=== PATIENT | male | born 1975 | race African-American/Black ===

== ENCOUNTER 2019-01-12 17:17 | Emergency (ER) | payer BC ==
[2019-01-12 17:22] VITALS: BP 132/80; PULSE 73; TEMP 98.1; BMI 30.4
--- NOTE | 2019-01-12 17:24 | PDOC ---
History of Present Illness - General Chief Complaint: Chest Pain Stated Complaint: CHEST PAIN Time Seen by Provider: 01/12/19 17:23 - History of Present Illness Initial Comments: 01/12/19 17:43 The patient is a 43 year old male with a history of pre-diabetes who presents for evaluation of chest pain. 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 He notes that palpation of a specific location helped relieve his pain and states that his pain has completely resolved on presentation to the ED. He otherwise denies fevers, chills, SOB, cough, nausea, vomiting, abdominal pain, or changes with urination or bowel movements. Past History - Past Medical History Allergies/Adverse Reactions: Allergies Allergy/AdvReac Type Severity Reaction Status Date / Time No Known Allergies Allergy Verified 01/12/19 17:23 Home Medications: Ambulatory Orders NK [No Known Home Medication] 01/12/19 COPD: No Diabetes: Yes (pre no meds) - Suicide/Smoking/Psychosocial Hx Smoking History: Never smoked Have you smoked in the past 12 months: No Information on smoking cessation initiated: No Hx Alcohol Use: No Drug/Substance Use Hx: No Review of Systems - Review of Systems Comments:: 01/12/19 17:48 Constitutional: No fevers, chills, fatigue, malaise HEENT: No Rhinorrhea, nasal congestion, visual changes Cardiovascular: Chest pain. No syncope, palpitations, lightheadedness Respiratory: No Cough, SOB, Hemoptysis, Gastrointestinal: No Abdominal pain, Nausea, Vomiting, Constipation, Diarrhea, Melena Genitourinary: No Dysuria, Frequency, Urgency, Hesitancy, Hematuria, Flank pain Musculoskeletal: No Myalgia, arthralgia Skin: No rashes, itching, bruising, pallor Neurologic: No Headache, Dizziness, Numbness, Weakness, or Tingling Psychiatric: No Hallucinations. No SI or HI *Physical Exam - Vital Signs Last Vital Signs Temp Pulse Resp BP Pulse Ox 98.1 F 73 18 132/80 100 01/12/19 17:20 01/12/19 17:20 01/12/19 17:20 01/12/19 17:20 01/12/19 17:20 - Physical Exam Comments: 01/12/19 17:48 General Appearance: Nourished. No Apparent Distress HEENT: No Pharyngeal Erythema, Tonsillar Exudate, Tonsillar Erythema Neck: No Cervical Lymphadenopathy Respiratory/Chest: Lungs Clear, Normal Breath Sounds. No Crackles, Rales, Rhonchi, Wheezing Cardiovascular: Regular Rhythm, Regular Rate. No Murmur, Gallops, Rubs Gastrointestinal/Abdominal: Normal Bowel Sounds, Soft. No Guarding, Rebound, Tenderness Musculoskeletal: No CVA Tenderness Extremity: Normal Capillary Refill Integumentary: Normal Color, Dry, Warm Neurologic: Fully Oriented, Alert, Normal Mood/Affect, Normal Response, Heart Score/ECG Review - History History: Slightly suspicious - Electrocardiogram EKG: Normal - Age Age: </= 45 - Risk Factors Risk Factors Heart Score: Yes Hx Diabetes Based on the list above the patient has:: 1-2 risk factors - Troponin Troponin: </= normal limit - Score Heart Score - Total: 1 #1 ECG reviewed & interpreted by me at: 17:49 General ECG Interpretation: Sinus Rhythm, Normal Rate, Normal Intervals, No acute ischemic changes 01/12/19 17:49 HR 71 QRS 98 QTc 428 ED Treatment Course - LABORATORY CBC & Chemistry Diagram: 01/12/19 17:23 01/12/19 17:23 - RADIOLOGY Radiology Studies Ordered: Category Date Time Status CHEST X-RAY PORTABLE* [RAD] Stat Radiology 01/12/19 17:24 Ordered Medical Decision Making - Medical Decision Making 01/12/19 17:49 The patient is a 43 year old male with a history of pre-diabetes who presents for evaluation of chest pain. Differential includes but is not limited to: ACS , Musculoskeletal, Infectious, Metabolic Derangement. Given the patient's history and physical exam, it is likely the patient's symptoms are musculoskeletal in nature. However, we will obtain a cbc, cmp, troponin, ekg, chest plain film to evaluate further. We will continue to monitor and reassess while here in the ED. 01/12/19 18:12 CBC, cmp, troponin are unremarkable. Chest plain film is unremarkable. The patient was reassessed and reports continued improvement in their symptoms and is asymptomatic. We are comfortable discharging the patient home in stable condition. Patient and family made aware of impression and plan, return precautions discussed including but not limited to worsening pain or symptoms, fevers, or signs of infection, chest pain, respiratory distress, inability to tolerate oral intake, dehydration, syncope, or neurologic changes. The patient is to follow up with PMD and as recommended within 1 week, follow up information provided and the patient will call for an appointment. The patient is to take medications as instructed for duration of time and continue with supportive care, avoid triggers and precipitants. Patient is safe for outpatient follow-up. *DC/Admit/Observation/Transfer Diagnosis at time of Disposition: Chest pain Qualifiers: Chest pain type: unspecified Qualified Code(s): R07.9 - Chest pain, unspecified - Discharge Dispostion Disposition: HOME Condition at time of disposition: Stable Decision to Admit order: No - Referrals - Patient Instructions Printed Discharge Instructions: DI for Chest Pain Additional Instructions: 1) Please follow-up with your primary care doctor in the next 2-3 days. Please call tomorrow to schedule a follow up appointment. If you cannot follow up with your doctor within 1 week please return to the Emergency Department for any urgent issues. 2) Your laboratory / imaging results were normal here in the ER. 3) If you have any worsening of symptoms or any other concerns please return to the ER immediately. Return if worsening symptoms including fevers, headache, vomiting, visual or hearing disturbances, abdominal pain, chest pain, shortness of breath, syncope, dehydration, inability to take things by mouth/vomiting, altered mental status, or worsening concerning symptoms. 4) Please continue taking your home medications as directed. - Post Discharge Activity
[2019-01-12 17:37] LABS: BASO % 0.8 % (0-2.0); EOS % 4.6 % (0-4.5); HEMOGLOBIN 14.6 GM/dL (11.7-16.9); LYMPH % 44.1 % (8-40); MCH 28.7 pg (25.7-33.7); MCHC 32.3 g/dl (32.0-35.9); MEAN PLT VOLUME 7.4 fl (7.5-11.1); MONO % 7.1 % (3.8-10.2); NEUT % 43.4 % (42.8-82.8); PLATELET COUNT 278 K/MM3 (134-434); RBC 5.06 M/mm3 (4.00-5.60); RDW 13.2 % (11.9-15.9)
--- NOTE | 2019-01-12 17:59 | PDOC ---
Documentation entered by Fletcher Adkins SCRIBE, acting as scribe for Rafael Shah MD. Rafael Shah MD: This documentation has been prepared by the warrenibJed cdeillo Daniel, SCRIBE, under my direction and personally reviewed by me in its entirety. I confirm that the documentation accurately reflects all work, treatment, procedures, and medical decision making performed by me. Attending Attestation - Resident Resident Name: DianaFletcher - ED Attending Attestation I have performed the following: I have examined & evaluated the patient, The case was reviewed & discussed with the resident, I agree w/resident's findings & plan, Exceptions are as noted - HPI HPI: 01/12/19 17:53 43-year-old male with history of prediabetes presents with atypical chest pain. 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 Patient was working when he felt a sudden onset of a right sharp pinching point chest pain with no relation. No short of breath. No dyspnea on exertion. Patient reports that palpating the right chest improves the pain. Stated the pain resolved after approximately 20 minutes. No fevers or chills. - Physicial Exam PE: 01/12/19 17:57 GENERAL: Awake, alert, and fully oriented, in no acute distress HEAD: No signs of trauma EYES: EOMI, sclera anicteric, conjunctiva clear ENT: Auricles normal inspection, hearing grossly normal, nares patent, Moist mucosa NECK: Normal ROM, supple, LUNGS: Breath sounds equal, clear to auscultation bilaterally. No wheezes, and no crackles HEART: Regular rate and rhythm, normal S1 and S2, no murmurs, rubs or gallops Reproducible right sided chest pain EXTREMITIES: Normal range of motion, no edema. No clubbing or cyanosis. No cords, erythema, or tenderness NEUROLOGICAL: Cranial nerves II through XII grossly intact. Normal speech SKIN: Warm, Dry, normal turgor, no rashes or lesions noted. - Medical Decision Making 01/12/19 17:58 A portion of this note was documented by scribe services under my direction. I have reviewed the details of the note, within reason, and agree with the documentation with the following case summary and management plan written by me. Patient treated in the ED. Nursing notes are reviewed and incorporated into the medical decision-making. Vital signs reviewed. Peripheral IV access obtained by the nurse, laboratory studies are drawn and sent, reviewed and interpreted by myself. Vital Signs Temp Pulse Resp BP Pulse Ox 98.1 F 73 18 132/80 99 01/12/19 17:20 01/12/19 17:20 01/12/19 17:20 01/12/19 17:20 01/12/19 17:30 Patient's EKG is reassuring. The history is very unusual for pulmonary was him acute coronary syndrome or other acute cardiac pathologies. We'll obtain labs including one troponin. If the workup is negative, the patient can be discharged home with outpatient follow-up. 01/12/19 18:14 CBC, BMP 01/12/19 17:23 01/12/19 17:23 CMP Sodium 140 mmol/L (136-145) 01/12/19 17:23 Potassium 3.8 mmol/L (3.5-5.1) 01/12/19 17:23 Chloride 106 mmol/L (98-107) 01/12/19 17:23 Carbon Dioxide 28 mmol/L (21-32) 01/12/19 17:23 Anion Gap 7 MMOL/L (8-16) L 01/12/19 17:23 BUN 12 mg/dL (7-18) 01/12/19 17:23 Creatinine 1.1 mg/dL (0.55-1.3) 01/12/19 17:23 Creat Clearance w eGFR 72.72 (>60) 01/12/19 17:23 Random Glucose 133 mg/dL (74-106) H 01/12/19 17:23 Calcium 9.0 mg/dL (8.5-10.1) 01/12/19 17:23 Total Bilirubin 0.3 mg/dL (0.2-1) 01/12/19 17:23 AST 16 U/L (15-37) 01/12/19 17:23 ALT 34 U/L (13-61) 01/12/19 17:23 Alkaline Phosphatase 63 U/L (45-117) 01/12/19 17:23 Creatine Kinase 157 U/L (26-308) 01/12/19 17:23 Troponin I < 0.02 ng/ml (0.00-0.05) 01/12/19 17:23 Total Protein 7.3 g/dl (6.4-8.2) 01/12/19 17:23 Albumin 4.0 g/dl (3.4-5.0) 01/12/19 17:23 Chest xray reviewed by me, pending official radiology read. No acute findings. Heart Score/ECG Review - History History: Slightly suspicious - Electrocardiogram EKG: Normal - Age Age: </= 45 - Risk Factors Based on the list above the patient has:: No risk factors known #1 ECG reviewed & interpreted by me at: 17:15 01/12/19 17:59 NSR 71, no std/alma delia, normal axis, normal intervals, QTC 428 msec
[2019-01-12 18:03] LABS: ALK PHOS 63 U/L (45-117); ANION GAP 7 MMOL/L (8-16); BILIRUBIN,TOTAL 0.3 mg/dL (0.2-1); BLOOD UREA NITROGEN 12 mg/dL (7-18); CHLORIDE 106 mmol/L (98-107); CO2 28 mmol/L (21-32); CREATININE 1.1 mg/dL (0.55-1.3); GLUCOSE,RANDOM 133 mg/dL (74-106); POTASSIUM 3.8 mmol/L (3.5-5.1); SGOT/AST 16 U/L (15-37); SGPT/ALT 34 U/L (13-61); SODIUM 140 mmol/L (136-145); TOT PROT 7.3 g/dl (6.4-8.2)
--- NOTE | 2019-01-13 10:00 | EKG ---
Test Reason : Blood Pressure : / mmHG Vent. Rate : 071 BPM Atrial Rate : 071 BPM P-R Int : 160 ms QRS Dur : 098 ms QT Int : 394 ms P-R-T Axes : 053 039 034 degrees QTc Int : 428 ms NORMAL SINUS RHYTHM POSSIBLE LEFT ATRIAL ENLARGEMENT BORDERLINE ECG NO PREVIOUS ECGS AVAILABLE Confirmed by KEERTHI NAVA MD ([id number]) on 01/13/2019 10:00:07 AM Referred By: Confirmed By:KEERHTI NAVA MD
== END 2019-01-12 18:26 | disposition home or self-care (01) ==
LOC: JER 17:17
DX: R07.9 Chest pain, unspecified (principal); R73.03 Prediabetes
CPT/HCPCS: 36415; 71045-TC-FY; 80053; 82550; 82553; 84484; 85025; 93005; 93010; 99285-25